=== PATIENT | male | born 1990 | race Caucasian/White ===

== ENCOUNTER 2018-05-01 10:31 | Emergency (ER) | payer OTHER ==
[2018-05-01 10:46] VITALS: BP 156/83; RESP 18; TEMP 97.8; O2SAT 97; BMI 23.1
--- NOTE | 2018-05-01 11:11 | ED PDOC ---
HPI: Abdomen Time Seen by Provider: 05/01/18 10:58 Chief Complaint (Nursing): Abdominal Pain Chief Complaint (Provider): left upper abdominal pain, left lower chest pain History Per: Patient Onset/Duration Of Symptoms: Hrs Outside of [place] travel?: No Current Symptoms Are (Timing): Still Present Context: Food Location Of Pain/Discomfort: LUQ Quality Of Discomfort: Sharp, "Pain" Associated Symptoms: Vomiting (x 1), Chest Pain (lower left). denies: Fever, Chills, Nausea, Diarrhea, Back Pain Additional History Per: Patient Additional Complaint(s): 28yo male, otherwise well, comes to ER reporting pain to his left lower ribs/left upper abdomen region since this morning. Patient states the symptoms started after he ate a steak sandwich for breakfast; he reports an episode of vomiting as well. Patient states the pain is constant and he did not take any medications. Otherwise, no fever, chills, shortness of breath, and he has no additional complaints. PMD: In [place] Against Medical Advice - AMA Patient Left Against Medical Advice: The patient declines admission to the hospital and wishes to leave the Emergency Department. This action is against my medical advice. This decision was made with informed refusal. The patient was told that admission to the hospital is necessary. Explanation of the reasons why were discussed. The risks of leaving were explained to the patient and include, but are not limited to, worsening of known or currently unknown conditions, permanent disability and from undiagnosed or untreated conditions. The patient has the capacity to make this informed decision and understands my explanation of the current medical problem and risks of leaving. The patient voluntarily accepts these risks and signed an AMA form documenting our conversation. The patient was given the opportunity to ask questions and reconsider. The patient was encouraged to return to the Emergency Department at any time for further care. Past Medical History Reviewed: Historical Data, Nursing Documentation, Vital Signs Vital Signs: Last Vital Signs Temp 97.8 F 05/01/18 10:45 Pulse 108 H 05/01/18 10:45 Resp 18 05/01/18 10:45 BP 156/83 H 05/01/18 10:45 Pulse Ox 97 05/01/18 10:45 - Medical History PMH: No Chronic Diseases - Surgical History Surgical History: No Surg Hx - Family History Family History: States: No Known Family Hx - Allergies Allergies/Adverse Reactions: Allergies Allergy/AdvReac Type Severity Reaction Status Date / Time pollen extracts Allergy RASH Verified 05/01/18 10:56 Review of Systems ROS Statement: Except As Marked, All Systems Reviewed And Found Negative Constitutional: Negative for: Fever, Chills Respiratory: Negative for: Shortness of Breath Gastrointestinal: Positive for: Vomiting (x 1), Abdominal Pain (left upper quadrant/left lower chest area) Physical Exam - Reviewed Nursing Documentation Reviewed: Yes Vital Signs Reviewed: Yes - Physical Exam Appears: Positive for: Non-toxic, No Acute Distress Head Exam: Positive for: ATRAUMATIC, NORMAL INSPECTION, NORMOCEPHALIC Skin: Positive for: Normal Color, Warm. Negative for: Rash Eye Exam: Positive for: EOMI, Normal appearance, PERRL ENT: Positive for: Normal ENT Inspection. Negative for: Pharyngeal Erythema Neck: Positive for: Normal, Painless ROM, Supple Cardiovascular/Chest: Positive for: Regular Rate, Rhythm. Negative for: Chest Non Tender (+ left lower chest costal area tenderness), Murmur Respiratory: Positive for: Normal Breath Sounds. Negative for: Wheezing Pulses-Radial (L): 2+ Pulses-Radial (R): 2+ Gastrointestinal/Abdominal: Positive for: Normal Exam, Soft. Negative for: Tenderness, Guarding, Rebound Back: Positive for: Normal Inspection. Negative for: L CVA Tenderness, R CVA Tenderness Extremity: Positive for: Normal ROM. Negative for: Pedal Edema Neurologic/Psych: Positive for: Alert, Oriented. Negative for: Motor/Sensory Deficits - ECG ECG: Positive for: Interpreted By Me, Viewed By Me ECG Rhythm: Positive for: Normal QRS, Sinus Rhythm. Negative for: ST/T Changes Rate: 73 O2 Sat by Pulse Oximetry: 97 (RA) Pulse Ox Interpretation: Normal Medical Decision Making Medical Decision Making: Impression: Left lower chest/left upper abdomen pain, 1 episode of vomiting; likely musculoskeletal pain Differential: gastritis, GERD, r/o pneumothorax Plan: -- Discussed with patient plan to obtain bloodwork and give IV medication, and patient declines invasive treatment. Discussed benefits of initial plan with patient, however he refuses any bloodwork or IV medication. -- EKG -- CXR -- Maalox 30mg PO -- Zofran 4mg ODT -- Motrin 600mg PO 1209 CXR reviewed by me, no pneumothorax noted. No active disease. No free air under diaphragm. 1218 Discussed XR findings with patient; on reassessment, he reports improvement in the pain. Discussed with patient need for further evaluation with labs and possibly a CT however, he refuses any invasive treatment. Offered patient non- contrast CT and declines that as well. Patient elects to leave AMA. Scribe Attestation: Documented by Valentina Hernandez acting as a scribe for Scott Glass MD Provider Attestation: All medical record entries made by the Scribe were at my direction and personally dictated by me. I have reviewed the chart and agree that the record accurately reflects my personal performance of the history, physical exam, medical decision making, and the department course for this patient. I have also personally directed, reviewed, and agree with the discharge instructions and disposition. Disposition - Clinical Impression Clinical Impression: Chest pain, Left against medical advice - Patient ED Disposition Is Patient to be Admitted: No Doctor Will See Patient In The: Office Counseled Patient/Family Regarding: Studies Performed, Diagnosis, Need For Followup - Disposition Referrals: [facility] [Outside] Disposition: Against Medical Advice Disposition Time: 12:18 Condition: GOOD Additional Instructions: BLOSSOM LIZARRAGA, thank you for letting us take care of you today. Your provider was Scott Glass MD and you were treated for MOUTH PAIN. The emergency medical care you received today was directed at your acute symptoms. If you were prescribed any medication, please fill it and take as directed. It may take several days for your symptoms to resolve. Return to the Emergency Department if your symptoms worsen, do not improve, or if you have any other problems. Please contact your doctor or call one of the physicians/clinics you have been referred to that are listed on the Patient Visit Information form that is included in your discharge packet. Bring any paperwork you were given at discharge with you along with any medications you are taking to your follow up visit. Our treatment cannot replace ongoing medical care by a primary care provider outside of the emergency department. Thank you for allowing the [facility] team to be part of your care today. If you had an X-Ray or CT scan: A Radiologist will review the ED reading if any change in treatment is needed we will contact you. If you had a blood, urine, or wound culture: It will take several days for the results, if any change in treatment is needed we will contact you. If you had an STI test: It will take 48 hours for the results. Please call after 1 week if you have not heard back. Instructions: Chest Pain, Leaving Against Medical Advice
[2018-05-01] MEDS ORDERED: Alum-Mag Hydrox-Simethicone Susp (30 mL) ONE (11:21)
[2018-05-01] MEDS: Alum-Mag Hydrox-Simethicone Susp (30 mL) PO ONE (11:22)
[2018-05-01 11:40] VITALS: PULSE 73
--- NOTE | 2018-05-01 13:01 | RAD ---
Date of service: 05/01/2018 HISTORY: Left-sided chest pain. COMPARISON: No prior. TECHNIQUE: Chest PA and lateral FINDINGS: LUNGS: No active pulmonary disease. PLEURA: No significant pleural effusion identified. No pneumothorax apparent. CARDIOVASCULAR: No aortic atherosclerotic calcification present. Normal cardiac size. No pulmonary vascular congestion. OSSEOUS STRUCTURES: No significant abnormalities. VISUALIZED UPPER ABDOMEN: Normal. OTHER FINDINGS: None. IMPRESSION: No active disease.
--- NOTE | 2018-05-01 21:51 | CARD ---
APPROVED REPORT Date of service: 05/01/2018 EKG Measurement Heart [id number] <Conclusion> Normal sinus rhythm Left ventricular hypertrophy Borderline ECG
== END 2018-05-01 12:35 | disposition left against medical advice (07) ==
LOC: H.ER 10:31
DX: R07.89 Other chest pain (principal)